=== PATIENT | male | born 1990 | race Two or more races ===

== ENCOUNTER 2017-12-17 21:49 | Emergency (ER) | payer SELFPAY ==
[2017-12-17] MEDS ORDERED: ACETAMINOPHEN 325 MG TABLET (FP) ONE (22:04)
[2017-12-17 22:09] VITALS: BP 120/66; PULSE 100; TEMP 100.9; BMI 33.9
[2017-12-17] MEDS ORDERED: ACETAMINOPHEN 325 MG TABLET (FP) PO ONE (22:10)
--- NOTE | 2017-12-17 23:07 | PDOC ---
History of Present Illness - General Chief Complaint: Cold Symptoms Stated Complaint: FEVER/WEAKNESS Time Seen by Provider: 12/17/17 22:55 History Source: Patient Exam Limitations: No Limitations - History of Present Illness Initial Comments: 12/17/17 23:27 27-year-old male with no medical history presents to the emergency department complaining of subjective fever, rhinorrhea, nasal congestion, intermittent nonproductive cough 3 days without chills, nausea/vomiting, area, sore throat, chest pain, shortness of breath, flank pains, abdominal pains. Patient states she's been taking Tylenol for his symptoms without much relief. Positive sick contact/his girlfriend Timing/Duration: reports: other (x3d) Associated Symptoms: reports: cough, fever/chills Past History - Past Medical History Allergies/Adverse Reactions: Allergies Allergy/AdvReac Type Severity Reaction Status Date / Time No Known Allergies Allergy Verified 12/17/17 22:01 Home Medications: Ambulatory Orders Azithromycin [Zithromax -] 250 mg PO UTDICT #6 tab 12/17/17 Ibuprofen 600 mg PO PRN 12/17/17 COPD: No - Suicide/Smoking/Psychosocial Hx Smoking History: Never smoked Review of Systems - Review of Systems Able to Perform ROS?: Yes Comments:: 12/17/17 23:28 CONSTITUTIONAL: +fever Absent: chills, diaphoresis, generalized weakness, malaise, loss of appetite HEENT: +rhinnorhea/nasal congestion Absent: throat pain, throat swelling, difficulty swallowing, mouth swelling, ear pain, eye pain, visual Changes CARDIOVASCULAR: Absent: chest pain, loss of consciousness, palpitations, irregular heart rate, peripheral edema RESPIRATORY: +cough Absent: shortness of breath, dyspnea with exertion, orthopnea, wheezing, stridor , hemoptysis GASTROINTESTINAL: Absent: abdominal pain, abdominal distension, nausea, vomiting, diarrhea, constipation, melena, hematochezia GENITOURINARY: Absent: dysuria, frequency, urgency, hesitancy, hematuria, flank pain, genital pain MUSCULOSKELETAL: Absent: myalgia, arthralgia, joint swelling SKIN: Absent: rash, itching, pallor Is the patient limited Tristanian proficient: No *Physical Exam - Vital Signs Last Vital Signs Temp Pulse Resp BP Pulse Ox 100.9 F H 100 H 20 120/66 99 12/17/17 22:02 12/17/17 22:02 12/17/17 22:02 12/17/17 22:02 12/17/17 22:02 - Physical Exam Comments: 12/17/17 23:29 GENERAL: Well developed, well nourished. Awake and alert. No acute distress. HEENT: Normocephalic, atraumatic. PERRLA, EOMI. No conjunctival pallor. Sclera are non- icteric. Moist mucous membranes. Oropharynx is clear. NECK: Supple. Full ROM. No JVD. Carotid pulses 2+ and symmetric, without bruits. No thyromegaly. No lymphadenopathy. CARDIOVASCULAR: Regular rate and rhythm. No murmurs, rubs, or gallops. Distal pulses are 2+ and symmetric. PULMONARY: No evidence of respiratory distress. Lungs clear to auscultation bilaterally. No wheezing, rales or rhonchi. ABDOMINAL: Soft. Non-tender. Non-distended. No rebound or guarding. No organomegaly. Normoactive bowel sounds. MUSCULOSKELETAL Normal range of motion at all joints. No bony deformities or tenderness. No CVA tenderness. EXTREMITIES: No cyanosis. No clubbing. No edema. No calf tenderness. SKIN: Warm and dry. Normal capillary refill. No rashes. No jaundice. ED Treatment Course - Medications Given in the ED: ED Medications Discontinued Medications Generic Name Dose Route Start Last Admin Trade Name Mainorq PRN Reason Stop Dose Admin Acetaminophen 975 mg 12/17/17 22:10 12/17/17 22:10 Tylenol - PO 12/17/17 22:11 975 mg NOW ONE Administration *DC/Admit/Observation/Transfer Diagnosis at time of Disposition: Acute bronchitis Qualifiers: Bronchitis organism: unspecified organism Qualified Code(s): J20.9 - Acute bronchitis, unspecified - Discharge Dispostion Disposition: HOME Condition at time of disposition: Stable Admit: No - Prescriptions Prescriptions: Azithromycin [Zithromax -] 250 mg PO UTDICT #6 tab - Referrals Referrals: ON STAFF,NOT [Primary Care Provider] - - Patient Instructions Printed Discharge Instructions: DI for Acute Bronchitis Additional Instructions: Rest Increase fluid Follow-up with your physician within 48 hours Return back to the emergency department for severe/persistent or worsening symptoms - Post Discharge Activity Forms/Work/School Notes: Back to Work
== END 2017-12-17 23:48 | disposition home or self-care (01) ==
LOC: JER 21:49
DX: J20.9 Acute bronchitis, unspecified (principal)
CPT/HCPCS: 99281-25